=== PATIENT | female | born 1980 | race Two or more races ===

== ENCOUNTER → 2020-04-07 | Outpatient (CLI) | payer OTHER | END | disposition home or self-care (01) | LOC: PRENATAL 14:28 | PROVIDERS: ATTEND Specialist | DX: O28.1 Abnormal biochemical finding on antenatal screening of mother (principal); O35.3XX1 Maternal care for (suspected) damage to fetus from viral disease in mother, fetus 1; O99.512 Diseases of the respiratory system complicating pregnancy, second trimester ==

== ENCOUNTER 2020-07-21 04:16 | Inpatient (IN) | payer OTHER ==
[~2020-07-21] VITALS: Ht 165.1 cm; Wt 85.3 kg
[2020-07-21] MEDS ORDERED: PRENATAL TABLE1 EAC3 PO (07:14)
== END 2020-07-23 14:39 | disposition home or self-care (01) | DRG 807 ==
LOC: LDR 04:16 → SURG-SUITE 04:16 → LDR 07:57 → SURG-SUITE 10:46
PROVIDERS: ADMIT Specialist; ATTEND Specialist
PROC: 10E0XZZ Delivery of Products of Conception, External Approach (ICD-10-PCS; principal; 2020-07-21)
PROC: 0KQM0ZZ Repair Perineum Muscle, Open Approach (ICD-10-PCS; 2020-07-21)
PROC: 4A1HXFZ Monitoring of Products of Conception, Cardiac Rhythm, External Approach (ICD-10-PCS; 2020-07-21)
PROC: 3E033VJ Introduction of Other Hormone into Peripheral Vein, Percutaneous Approach (ICD-10-PCS; 2020-07-21)
DX: O70.1 Second degree perineal laceration during delivery (principal); Z37.0 Single live birth; Z3A.38 38 weeks gestation of pregnancy; Z20.828 Contact with and (suspected) exposure to other viral communicable diseases